=== PATIENT | male | born 1985 | race African-American/Black ===

== ENCOUNTER 2020-10-22 01:08 | Emergency (ER) | payer MEDICAID ==
[~2020-10-22] VITALS: Ht 190.5 cm; Wt 140.6 kg
--- NOTE | 2020-10-22 01:25 | NUR ---
Pt was diagnosed w/ syphilis last week, + itching and discharges. Pt A/OX 4, rr even and unlabored, patient in on acute distress. vss, will continue to monitor.
[2020-10-22] MEDS ORDERED: PENICILLIN G BENZATHINE 2.4 MMU/4 ML ML IM ONE ×3 (01:45→02:00)
[2020-10-22 02:27] VITALS: BP 139/88
--- NOTE | 2020-10-22 02:28 | NUR ---
Patient discharged to home in stable condition. Written and verbal after care instructions given. Patient verbalizes understanding of instruction.
== END 2020-10-22 02:29 | disposition home or self-care (01) ==
LOC: ER 01:09
DX: A53.9 Syphilis, unspecified (principal); F17.200 Nicotine dependence, unspecified, uncomplicated
CPT/HCPCS: 96372; 99283; J0558

== ENCOUNTER 2021-02-10 01:13 | Emergency (ER) | payer MEDICAID ==
[~2021-02-10] VITALS: Ht 190.5 cm; Wt 129.3 kg
[2021-02-10 01:18] VITALS: BP 165/102
--- NOTE | 2021-02-10 01:47 | NUR ---
PT DID NOT WANT TO WAIT FOR DISCHARGE PAPERWORK.
== END 2021-02-10 01:47 | disposition home or self-care (01) ==
LOC: ER 01:13
DX: A53.9 Syphilis, unspecified (principal); I10 Essential (primary) hypertension; E11.9 Type 2 diabetes mellitus without complications; F17.200 Nicotine dependence, unspecified, uncomplicated

== ENCOUNTER 2021-04-22 11:27 | Emergency (ER) | payer MEDICAID, OTHER ==
[~2021-04-22] VITALS: Ht 190.5 cm; Wt 127.0 kg
--- NOTE | 2021-04-22 11:40 | NUR ---
PT BIBSELF FROM HOME C/O HEADACHE AND SOB SINCE LAST NIGHT. STATED CAME IN LAST NIGHT FOR SEPSIS. PT A/OX4. TOLERATING R/A WELL WITH NO SOB AT 100%. PT CONNECTED TO POX AND MONITOR.
--- NOTE | 2021-04-22 11:57 | NUR ---
RFA #18G S/L; PATENT AND INTACT. BLOOD COLLECTED AND SENT TO LAB
--- NOTE | 2021-04-22 12:06 | NUR ---
COVID ANTIGEN AND PCR COLLECTED AND SENT TO LAB
[2021-04-22 13:09] LABS: BASOPHILS % (AUTO) 0.3 % (0.0-2.0); EOSINOPHILS % (AUTO) 0.5 % (0.0-6.0); HEMATOCRIT 41 % (39-51); HEMOGLOBIN 13.5 g/dL (13.5-17.5); LYMPHOCYTES # (AUTO) 2.4 K/uL (0.8-4.8); LYMPHOCYTES % (AUTO) 20.5 % (20.0-44.0); MEAN CORPUSCULAR HGB CONC 33 g/dl (31.0-36.0); MEAN CORPUSCULAR VOLUME 88 fL (80-96); MONOCYTES # (AUTO) 0.6 K/uL (0.1-1.30); MONOCYTES % (AUTO) 5.3 % (2.0-12.0); NEUTROPHILS # (AUTO) 8.6 K/uL (1.8-8.9); NEUTROPHILS % (AUTO) 73.4 % (43.0-81.0); PLATELET COUNT (AUTO) 297 K/uL (150-450); RED BLOOD CELL COUNT(AUTO) 4.64 MIL/uL (4.5-6.0); WHITE BLOOD COUNT (AUTO) 11.7 K/uL (4.3-11.0)
--- NOTE | 2021-04-22 13:40 | NUR ---
URINE COLLECTED AND SENT TO LAB
[2021-04-22 13:54] LABS: CALCIUM, SERUM 8.4 mg/dL (8.5-10.1); CREATININE 1.1 mg/dL (0.6-1.3); POTASSIUM 3.3 mmol/L (3.5-5.1)
[2021-04-22 14:54] LABS: BILIRUBIN,URINE NEGATIVE (NEGATIVE); COLOR,URINE YELLOW (YELLOW); LEUKOCYTE ESTERASE ,URINE NEGATIVE (NEGATIVE); NITRITE, URINE NEGATIVE (NEGATIVE); PROTEIN,URINE NEGATIVE (NEGATIVE); UGLUCOSE NEGATIVE (NEGATIVE)
[2021-04-22] MEDS ORDERED: IBUPROFEN 400 MG TABLET PO ONE (15:00)
[2021-04-22] MEDS ORDERED: IBUPROFEN 400 MG TABLET ONE (15:07)
[2021-04-22 15:09] LABS: BACTERIA,URINE None seen /HPF (None Seen); RBC,URINE 0-2 /HPF (0-2); SQUAMOUS EPITHELIAL CELL,UR 0-2 /HPF (None Seen); WBC,URINE 0-2 /HPF (0-3)
[2021-04-22 15:10] LABS: MUCUS,URINE Few /LPF (None Seen)
[2021-04-22] MEDS ORDERED: AMLO-212 PO (15:16)
[2021-04-22 15:26] VITALS: BP 148/94
--- NOTE | 2021-04-22 15:26 | NUR ---
IV removed. Catheter intact and site benign. Pressure and 4x4 applied to site. No bleeding noted.Patient discharged to home in stable condition. Written and verbal after care instructions given. Patient verbalizes understanding of instruction.
== END 2021-04-22 15:27 | disposition home or self-care (01) ==
LOC: ER 11:30
DX: J06.9 Acute upper respiratory infection, unspecified (principal); Z20.822 Contact with and (suspected) exposure to COVID-19; E87.6 Hypokalemia; E11.9 Type 2 diabetes mellitus without complications; F17.200 Nicotine dependence, unspecified, uncomplicated; R03.0 Elevated blood-pressure reading, without diagnosis of hypertension
CPT/HCPCS: 36415; 71045; 80048; 81001; 85025; 86592; 87426; 93005; 99285; C9803 ×2; U0003

== ENCOUNTER 2021-05-12 23:55 | Emergency (ER) | payer OTHER ==
[~2021-05-12] VITALS: Ht 190.5 cm; Wt 127.0 kg
[~2021-05-12 23:55] MED LIST: AMLO-212 PO
[2021-05-13] MEDS ORDERED: IBUPROFEN 400 MG TABLET PO ONE (01:00)
--- NOTE | 2021-05-13 01:01 | NUR ---
NOTCH GRINDER AT PT'S BEDSIDE
--- NOTE | 2021-05-13 01:01 | NUR ---
FINANCIAL PLANNING ADVISOR AT PT'S BEDSIDE
[2021-05-13] MEDS ORDERED: IBUPROFEN 400 MG TABLET ONE (01:06)
--- NOTE | 2021-05-13 02:48 | NUR ---
Patient discharged to home in stable condition. Written and verbal after care instructions given. Patient verbalizes understanding of instruction. Pt ambulatory with a steady gait
--- NOTE | 2021-05-13 02:48 | NUR ---
Patient discharged to home in stable condition. Written and verbal after care instructions given. Patient verbalizes understanding of instruction. Pt ambulatory with a steady gait
[2021-05-13 02:50] VITALS: BP 130/88
== END 2021-05-13 02:50 | disposition home or self-care (01) ==
LOC: ER 23:55
DX: S13.4XXA Sprain of ligaments of cervical spine, initial encounter (principal); S80.12XA Contusion of left lower leg, initial encounter; I10 Essential (primary) hypertension; E11.9 Type 2 diabetes mellitus without complications; F17.200 Nicotine dependence, unspecified, uncomplicated; Z60.2 Problems related to living alone; Z79.899 Other long term (current) drug therapy; V02.99XA Pedestrian with other conveyance injured in collision with two- or three-wheeled motor vehicle, unspecified whether traffic or nontraffic accident, initial encounter; Y93.89 Activity, other specified; Y92.89 Other specified places as the place of occurrence of the external cause; Y99.8 Other external cause status
CPT/HCPCS: 71100-TC; 72050-TC; 72074-TC; 73060-TC; 73552

== ENCOUNTER 2021-05-16 07:07 | Emergency (ER) | payer OTHER ==
--- NOTE | 2021-05-16 07:15 | NUR ---
CALLED IN ED WAITING ROOM. NO RESPONSE.
--- NOTE | 2021-05-16 07:33 | NUR ---
CALLED IN ED WAITING ROOM. NO RESPONSE.
--- NOTE | 2021-05-16 07:55 | NUR ---
LEFT BEFORE TRIAGE ASSESSMENT.
[2021-05-16] MEDS ORDERED: AMOX-430 PO (10:45)
== END 2021-05-16 07:56 | disposition left against medical advice (07) ==
LOC: EDUNIT# 07:07 → ER 07:10
DX: Z53.21 Procedure and treatment not carried out due to patient leaving prior to being seen by health care provider (principal)

== ENCOUNTER 2021-05-16 10:09 | Emergency (ER) | payer OTHER ==
[~2021-05-16] VITALS: Ht 190.5 cm; Wt 127.0 kg
[2021-05-16 10:09] VITALS: BP 146/94
--- NOTE | 2021-05-16 10:19 | NUR ---
SEEN AND EXAMINED BY .
[2021-05-16] MEDS ORDERED: TDAP [DIPH/PERTUSSIS/TET] 0.5 ML VIAL IM ONE ×2 (10:21→10:30)
[2021-05-16] MEDS ORDERED: LIDOCAINE 1% INJ 50 ML MDV IJ ONE ×2 (10:21→10:30)
[2021-05-16] MEDS ORDERED: AMOX-430 PO (10:45)
[2021-05-16] MEDS ORDERED: PENICILLIN G BENZATHINE 2.4 MMU/4 ML ML IM ONE ×2 (11:00→11:04)
--- NOTE | 2021-05-16 11:00 | NUR ---
SUTURING DONE BY .
--- NOTE | 2021-05-16 11:16 | NUR ---
Patient discharged to home in stable condition. Written and verbal after care instructions given. Patient verbalizes understanding of instruction.
== END 2021-05-16 11:17 | disposition home or self-care (01) ==
LOC: ER 10:10
DX: S71.112A Laceration without foreign body, left thigh, initial encounter (principal); Z60.2 Problems related to living alone; Z79.83 Long term (current) use of bisphosphonates; W54.0XXA Bitten by dog, initial encounter; Y93.89 Activity, other specified; Y92.89 Other specified places as the place of occurrence of the external cause; Y99.8 Other external cause status
CPT/HCPCS: 12002; 90471; 90715; 96372; 99284; J0558; J3490

== ENCOUNTER 2022-01-10 19:35 | Emergency (ER) | payer OTHER ==
[~2022-01-10] VITALS: Ht 190.5 cm; Wt 108.9 kg
[~2022-01-10 19:35] MED LIST changes: +AMOX-430 PO
[2022-01-10 19:51] VITALS: BP 140/72
[2022-01-10] MEDS ORDERED: CYCLOBENZAPRINE 10 MG TABLET ONE (20:27)
[2022-01-10] MEDS ORDERED: HYDROCODONE/APAP 5/325MG TABLET ONE (20:27)
[2022-01-10] MEDS ORDERED: KETOROLAC TROMETHAMINE 15 MG/ML VIAL ONE (20:27)
[2022-01-10] MEDS ORDERED: CYCLOBENZAPRINE 10 MG TABLET PO ONE (20:30)
[2022-01-10] MEDS ORDERED: KETOROLAC TROMETHAMINE INJ 60 MG/2 ML VIAL IM ONE (20:30)
[2022-01-10] MEDS ORDERED: HYDROCODONE/APAP 5/325MG TABLET PO ONE (20:30)
[2022-01-10] MEDS ORDERED: HYDR-4209 PO (21:54)
[2022-01-10] MEDS ORDERED: IBUP-1955 PO (21:54)
[2022-01-10] MEDS ORDERED: CYCL5TAB PO (21:54)
--- NOTE | 2022-01-10 22:01 | NUR ---
Patient discharged to home in stable condition. Written and verbal after care instructions given. Patient verbalizes understanding of instruction. Pt ambulatory with a steady gait
== END 2022-01-10 22:01 | disposition home or self-care (01) ==
LOC: ER 19:41
DX: S29.012A Strain of muscle and tendon of back wall of thorax, initial encounter (principal); M25.511 Pain in right shoulder; M54.50 Low back pain, unspecified; I10 Essential (primary) hypertension; E11.9 Type 2 diabetes mellitus without complications; F17.200 Nicotine dependence, unspecified, uncomplicated; Z60.2 Problems related to living alone; Z79.899 Other long term (current) drug therapy; V47.6XXA Car passenger injured in collision with fixed or stationary object in traffic accident, initial encounter; Y93.89 Activity, other specified; Y92.411 Interstate highway as the place of occurrence of the external cause; Y99.8 Other external cause status
CPT/HCPCS: 99284; 71045; 96372; 73030; J1885

== ENCOUNTER 2022-12-18 16:22 | Emergency (ER) | payer OTHER ==
[~2022-12-18] VITALS: Ht 190.5 cm; Wt 102.1 kg
[~2022-12-18 16:22] MED LIST changes: +CYCL5TAB PO; +HYDR-4209 PO; +IBUP-1955 PO
[2022-12-18 16:29] VITALS: BP 157/78; TEMP 98.6; O2SAT 100
[2022-12-18] MEDS ORDERED: IBUP-1955 PO (16:57)
[2022-12-18] MEDS ORDERED: CEPH500C2 PO (16:57)
[2022-12-18] MEDS ORDERED: CLOT12CR TP (16:57)
[2022-12-18] MEDS ORDERED: IBUPROFEN 600 MG TABLET ONE (16:59)
[2022-12-18] MEDS ORDERED: IBUPROFEN 400 MG TABLET PO ONE (17:00)
[2022-12-18] MEDS ORDERED: IBUPROFEN 400 MG TABLET ONE (17:02)
== END 2022-12-18 19:17 | disposition home or self-care (01) ==
LOC: ER 16:28
DX: S91.104A Unspecified open wound of right lesser toe(s) without damage to nail, initial encounter (principal); I10 Essential (primary) hypertension; E11.9 Type 2 diabetes mellitus without complications; F17.200 Nicotine dependence, unspecified, uncomplicated; Z60.2 Problems related to living alone; X58.XXXA Exposure to other specified factors, initial encounter; Y93.89 Activity, other specified; Y92.89 Other specified places as the place of occurrence of the external cause; Y99.8 Other external cause status
CPT/HCPCS: 73660-TC

== ENCOUNTER 2023-01-19 17:59 | Emergency (ER) | payer OTHER ==
[~2023-01-19] VITALS: Ht 193 cm; Wt 117.9 kg
[~2023-01-19 17:59] MED LIST changes: +CEPH500C2 PO; +CLOT12CR TP
[2023-01-19 18:11] VITALS: BP 144/81; TEMP 97.8; O2SAT 100
[2023-01-19] MEDS ORDERED: IBUPROFEN 600 MG TABLET PO ONE (18:30)
[2023-01-19] MEDS ORDERED: IBUPROFEN 600 MG TABLET ONE (18:33)
[2023-01-19] MEDS ORDERED: IBUP-1955 PO (19:07)
[2023-01-19] MEDS ORDERED: CEPH500C2 PO (19:31)
== END 2023-01-19 19:38 | disposition home or self-care (01) ==
LOC: ER 18:00
DX: L97.519 Non-pressure chronic ulcer of other part of right foot with unspecified severity (principal); I10 Essential (primary) hypertension; E11.9 Type 2 diabetes mellitus without complications; F17.200 Nicotine dependence, unspecified, uncomplicated; Z60.2 Problems related to living alone
CPT/HCPCS: 73660-TC; 82962-TC

== ENCOUNTER 2024-03-06 18:37 | Emergency (ER) | payer MEDICAID, OTHER ==
[~2024-03-06] VITALS: Ht 193 cm; Wt 108.9 kg
[2024-03-06 19:30] VITALS: BP 134/79; TEMP 98.3; O2SAT 99
[2024-03-06] MEDS: PENICILLIN G BENZATHINE 2.4 MMU/4 ML ML IM ONE (20:02)
[2024-03-08 12:08] LABS: RAPID PLASMA REAGIN QUAL. Reactive (Non Reactive); RPR, QUANT 1:16 titer (NonRea<1:1)
== END 2024-03-06 20:12 | disposition home or self-care (01) ==
LOC: ER 18:53
DX: Z20.2 Contact with and (suspected) exposure to infections with a predominantly sexual mode of transmission (principal); E11.9 Type 2 diabetes mellitus without complications; F17.200 Nicotine dependence, unspecified, uncomplicated; I10 Essential (primary) hypertension; Z60.2 Problems related to living alone
CPT/HCPCS: 99283; 96372; J0558; 36415; 86592; 86593

== ENCOUNTER 2024-03-17 13:55 | Emergency (ER) | payer MEDICAID ==
[~2024-03-17] VITALS: Ht 190.5 cm; Wt 108.9 kg
[2024-03-17 14:31] VITALS: TEMP 97.8
[2024-03-17] MEDS ORDERED: KETOROLAC TROMETHAMINE INJ 30 MG/ML VIAL ONE (15:31)
[2024-03-17] MEDS ORDERED: oxyCODONE/APAP (5/325 MG) 1 UDTAB TABLET ONE (15:31)
[2024-03-17] MEDS: oxyCODONE/APAP (5/325 MG) 1 UDTAB TABLET PO ONE (15:40)
[2024-03-17] MEDS: KETOROLAC TROMETHAMINE INJ 30 MG/ML VIAL IM ONE (15:40)
[2024-03-17 21:48] VITALS: BP 145/93; O2SAT 100
== END 2024-03-17 21:49 | disposition home or self-care (01) ==
LOC: ER 13:55
DX: M25.511 Pain in right shoulder (principal); M25.521 Pain in right elbow; M54.2 Cervicalgia; R07.81 Pleurodynia; E11.9 Type 2 diabetes mellitus without complications; F17.200 Nicotine dependence, unspecified, uncomplicated; I10 Essential (primary) hypertension; M19.011 Primary osteoarthritis, right shoulder; F32.A Depression, unspecified; M25.562 Pain in left knee; M25.561 Pain in right knee; Z60.2 Problems related to living alone; V43.62XA Car passenger injured in collision with other type car in traffic accident, initial encounter; Y93.89 Activity, other specified; Y92.488 Other paved roadways as the place of occurrence of the external cause; Y99.8 Other external cause status
CPT/HCPCS: 29105; 71100; 73030; 73080; 73200; 73564; 96372; 99285; J1885

== ENCOUNTER 2024-07-15 09:02 | Emergency (ER) | payer MEDICAID ==
[~2024-07-15] VITALS: Ht 190.5 cm; Wt 127.0 kg
[2024-07-15 09:35] LABS: APPEARANCE,URINE CLEAR (CLEAR); BILIRUBIN,URINE NEGATIVE (NEGATIVE); BLOOD, URINE 1+ Ery/uL (NEGATIVE); COLOR,URINE YELLOW (YELLOW); KETONES,URINE NEGATIVE (NEGATIVE); LEUKOCYTE ESTERASE ,URINE NEGATIVE (NEGATIVE); NITRITE, URINE NEGATIVE (NEGATIVE); PROTEIN,URINE TRACE mg/dl (NEGATIVE); UGLUCOSE NEGATIVE (NEGATIVE); UROBILINOGEN,URINE 0.2 EU/dL (0.2)
[2024-07-15 09:50] LABS: ADD URINE CULTURE NO; BACTERIA,URINE Few /HPF (None Seen); SQUAMOUS EPITHELIAL CELL,UR Few /HPF (None Seen)
[2024-07-15 09:51] LABS: COARSE GRANULAR CASTS,URINE Rare /LPF (None Seen)
[2024-07-15] MEDS ORDERED: CEFTRIAXONE 500 MG VIAL ONE (11:32)
[2024-07-15] MEDS ORDERED: METR-147 PO (11:32)
[2024-07-15] MEDS ORDERED: DOXY100C2 PO (11:32)
[2024-07-15] MEDS ORDERED: LIDOCAINE 1% INJ 50 ML MDV IJ ONE (11:33)
[2024-07-15] MEDS ORDERED: IBUP-1490 PO (11:33)
[2024-07-15] MEDS: CEFTRIAXONE 500 MG VIAL IM ONE (11:41)
[2024-07-15 11:42] VITALS: BP 170/109; TEMP 99; O2SAT 100
[2024-07-18 00:08] LABS: CHLAMYDIA TRACHOMATIS NAA Negative (Negative); NEISSERIA GONORRHOEAE NAA Negative (Negative)
== END 2024-07-15 11:42 | disposition home or self-care (01) ==
LOC: ER 09:02
DX: R30.0 Dysuria (principal); M54.50 Low back pain, unspecified; I10 Essential (primary) hypertension; E11.9 Type 2 diabetes mellitus without complications; F17.200 Nicotine dependence, unspecified, uncomplicated
CPT/HCPCS: 99283; 96372; 81001; 87491; 87591; J3490; J0696

== ENCOUNTER 2024-12-31 10:00 | Emergency (ER) | payer MEDICAID ==
[~2024-12-31] VITALS: Ht 190.5 cm; Wt 108.9 kg
[~2024-12-31 10:00] MED LIST changes: +DOXY100C2 PO; +IBUP-1490 PO; +METR-147 PO
[2024-12-31] MEDS ORDERED: IBUP-1490 PO (11:13)
[2024-12-31 11:19] VITALS: BP 128/86; TEMP 98; O2SAT 97
== END 2024-12-31 11:21 | disposition home or self-care (01) ==
LOC: ER 10:03
DX: M25.511 Pain in right shoulder (principal); M19.011 Primary osteoarthritis, right shoulder; I10 Essential (primary) hypertension; F17.200 Nicotine dependence, unspecified, uncomplicated; E11.9 Type 2 diabetes mellitus without complications; Z60.2 Problems related to living alone; Z79.899 Other long term (current) drug therapy
CPT/HCPCS: 73030-TC

== ENCOUNTER 2025-01-02 14:37 | Emergency (ER) | payer MEDICAID ==
[~2025-01-02] VITALS: Ht 188 cm; Wt 108.9 kg
[2025-01-02 15:33] VITALS: BP 167/88; TEMP 98
[2025-01-02] MEDS ORDERED: DOXY100T2 PO (15:41)
[2025-01-02 15:52] LABS: APPEARANCE,URINE CLEAR (CLEAR); BLOOD, URINE Negative Ery/uL (NEGATIVE); LEUKOCYTE ESTERASE ,URINE Negative (NEGATIVE); UGLUCOSE Negative (NEGATIVE)
[2025-01-02 15:55] LABS: NITRITE, URINE NEGATIVE (NEGATIVE)
[2025-01-02] MEDS ORDERED: CEFTRIAXONE 500 MG VIAL ONE (16:01)
[2025-01-02] MEDS ORDERED: LIDOCAINE /MPF 1% VIAL 5 ML VIAL ONE (16:02)
[2025-01-02] MEDS ORDERED: DOXYCYCLINE HYCLATE (100 MG) 100 MG TABLET ONE (16:02)
[2025-01-02 16:05] LABS: ADD URINE CULTURE NO; SQUAMOUS EPITHELIAL CELL,UR 0-2 /HPF (None Seen)
[2025-01-02] MEDS: CEFTRIAXONE 500 MG VIAL IM ONE (16:30)
[2025-01-02] MEDS: DOXYCYCLINE HYCLATE (100 MG) 100 MG TABLET PO ONE (16:32)
[2025-01-02 17:34] VITALS: O2SAT 97
[2025-01-03 11:11] LABS: RAPID PLASMA REAGIN QUAL. Reactive (Non Reactive); RPR, QUANT 1:4 titer (NonRea<1:1)
[2025-01-03 14:00] LABS: HIV-1/2 ANTIBODY NON REACTIVE (NONREACTIVE)
[2025-01-04 05:11] LABS: CHLAMYDIA TRACHOMATIS NAA Positive (Negative); NEISSERIA GONORRHOEAE NAA Negative (Negative)
== END 2025-01-02 17:35 | disposition home or self-care (01) ==
LOC: ER 14:44
DX: A64 Unspecified sexually transmitted disease (principal); I10 Essential (primary) hypertension; E11.9 Type 2 diabetes mellitus without complications; F17.200 Nicotine dependence, unspecified, uncomplicated; Z60.2 Problems related to living alone; Z79.899 Other long term (current) drug therapy; Z59.00 Homelessness unspecified
CPT/HCPCS: 99283; 86593; 86592; 96372; 81001; 36415; 87806; 87491; 87591; J0696; J3490